=== PATIENT | female | born 1965 | race Caucasian/White ===

== ENCOUNTER 2018-10-02 08:00 | Inpatient (IN) | payer OTHER ==
[2018-10-12 15:53] VITALS: BMI 36.6
[2018-11-06] MEDS ORDERED: LIDOCAINE 1%-EPI 1:100,000 30 ML MDV IJ ONE (07:44)
[2018-11-06] MEDS ORDERED: BUPIVACAINE HCL/PF 0.5% (5MG/ML) 10 ML VIAL ONE (07:44)
[2018-11-06] MEDS ORDERED: ceFAZolin SODIUM 1 GM VIAL ONE ×2 (07:44→09:01)
[2018-11-06] MEDS ORDERED: GENTAMICIN SO4 80 MG/2 ML VIAL ONE (07:44)
[2018-11-06] MEDS ORDERED: THROMBIN (BOVINE) 20,000 UNIT VIAL TP ONE (07:44)
--- NOTE | 2018-11-06 07:46 | HP ---
History & Physical Update - History History: No Change - Physical Physical: No Change - Assessment Assessment: No Change - Plan Plan: No Change (H&P is located in patient's paper chart and will be scanned into her E-Chart BE[facility]. Completed on 09/27/[address] Lucy Terry. NO new complaints or medications.)
[2018-11-06] MEDS ORDERED: VANCOMYCIN 1,000 MG VIAL (RESTRICTED TO ID ONLY) ONE ×2 (07:48→09:03)
[2018-11-06] MEDS ORDERED: morphine SULFATE/Preservative Free 0.5 MG/ML (1cc Syringe) ONE (08:03)
[2018-11-06] MEDS ORDERED: PROPOFOL 20 ML ONE ×3 (08:06→11:13)
[2018-11-06] MEDS ORDERED: ROCURONIUM BROMIDE 50 MG/5 ML VIAL ONE (08:06)
[2018-11-06] MEDS ORDERED: MIDAZOLAM HCL 2 MG/2 ML SINGLE DOSE VIAL ONE (08:07)
[2018-11-06] MEDS ORDERED: LIDOCAINE HCL/PF 2% SDV 5ML VIAL ONE (08:08)
[2018-11-06] MEDS ORDERED: BUPIVACAINE HCL/PF 0.25% (2.5MG/ML) 10 ML VIAL ONE (08:22)
[2018-11-06] MEDS ORDERED: BUPIVACAINE LIPOSOME/PF (EXPAREL) 266 MG/20 ML VIAL ONE (08:22)
[2018-11-06] MEDS ORDERED: DEXAMETHASONE SOD PHOSPHATE 4 MG/1 ML VIAL ONE (08:46)
[2018-11-06] MEDS ORDERED: ONDANSETRON 4 MG/2 ML VIAL ONE (08:46)
[2018-11-06] MEDS ORDERED: SODIUM CHLORIDE 0.9% P/F 10 ML VIAL IJ ONE ×2 (09:01→09:03)
[2018-11-06] MEDS ORDERED: ceFAZolin SODIUM 1 GM VIAL IVPB ONE (09:02)
[2018-11-06] MEDS ORDERED: VANCOMYCIN 1,000 MG VIAL (RESTRICTED TO ID ONLY) IVPB ONE (09:04)
[2018-11-06] MEDS ORDERED: LIDOCAINE 1%/EPI 1:100000 (50 ML MULTI DOSE VIAL) NR ONE (09:05)
[2018-11-06] MEDS ORDERED: THROMBIN (BOVINE) 5,000 UNIT VIAL TP ONE ×3 (09:14→10:00)
[2018-11-06] MEDS ORDERED: GELATIN, ABSORBABLE 12-7MM EACH SPONGE TP ONE ×2 (09:14)
[2018-11-06] MEDS ORDERED: ePHEDrine SULFATE 50 MG/1 ML AMPULE ONE ×2 (09:22→09:29)
[2018-11-06] MEDS ORDERED: GENTAMICIN SO4 80 MG/2 ML VIAL IVPB ONE ×2 (10:56)
[2018-11-06] MEDS ORDERED: BUPIVACAINE LIPOSOME/PF (EXPAREL) 266 MG/20 ML VIAL NR ONE ×3 (10:56→11:08)
[2018-11-06] MEDS ORDERED: BUPIVACAINE HCL/PF 0.25% (2.5MG/ML) 10 ML VIAL IJ ONE ×3 (10:56→11:08)
[2018-11-06] MEDS ORDERED: BACITRACIN 50,000 UNITS VIAL TP ONE ×3 (10:56)
[2018-11-06] MEDS ORDERED: GLYCOPYRROLATE 0.2 MG/1 ML VIAL ONE (10:56)
[2018-11-06] MEDS ORDERED: HYDROGEN PEROXIDE 473 ML PO ONE ×2 (10:56)
[2018-11-06] MEDS ORDERED: NEOSTIGMINE METHYLSULFATE 0.5 MG/1 ML - 10 ML MDV ONE ×3 (10:56)
[2018-11-06] MEDS ORDERED: METOPROLOL TARTRATE 5 MG/5 ML VIAL ONE (11:49)
[2018-11-06] MEDS ORDERED: PROMETHAZINE HCL 25 MG/1 ML VIAL IVPB PRN (11:57)
[2018-11-06] MEDS ORDERED: ONDANSETRON 4 MG/2 ML VIAL IVPUSH PRN (11:57)
[2018-11-06] MEDS ORDERED: DEXAMETHASONE SOD PHOSPHATE 4 MG/1 ML VIAL IVPUSH PRN (11:57)
[2018-11-06] MEDS ORDERED: LACTATED RINGERS SOLUTION 1,000 ML IV SCH (12:00)
--- NOTE | 2018-11-06 12:08 | OP ---
Operative Note - Note: Operative Date: 11/06/18 Pre-Operative Diagnosis: Chronic LBP with LE radiculopathy. HNP L4/5 Operation: L4/5 PLIF Post-Operative Diagnosis: Same as Pre-op Surgeon: Milton Holder Coach Operator: Chuck Galdamez Anesthesiologist/MAINTAINER OPERATOR: Giovanni Del Rosario Anesthesia: General Specimens Removed: L4/5 disc Estimated Blood Loss (mls): 150 Drains, Volume Out (mls): 1,400 ([place]/clear) Fluid Volume Replaced (mls): 2,200 Operative Report Dictated: Yes
[2018-11-06] MEDS ORDERED: oxyCODONE HCL 5 MG TABLET PO PRN (12:10)
[2018-11-06] MEDS: HYDROmorphone *PCA* 10MG/50ML DISP.SYRIN PCA SCH (13:00)
[2018-11-06] MEDS: LACTATED RINGERS SOLUTION 1,000 ML/1,000 ML INFUS.BAG IV SCH (16:02)
[2018-11-06] MEDS: HEPARIN NA (PORCINE) 5,000 UNITS/ML 1ML VIAL SQ SCH ×2 (16:54→21:21)
[2018-11-06] MEDS: DOCUSATE SODIUM 100 MG CAPSULE (FP) PO SCH ×2 (16:54→21:20)
[2018-11-06] MEDS: metFORMIN HCL 500 MG TABLET (FP) PO SCH ×2 (17:29→18:14)
[2018-11-06] MEDS: CEFAZOLIN 1 GM/D5W 1 GM/50 ML BAG IVPB SCH (17:29)
[2018-11-06] MEDS ORDERED: FLU VACCINE QUAD 60 MCG/0.5 ML (MDV 18-19) IM ONE (19:15)
[2018-11-07] MEDS: CEFAZOLIN 1 GM/D5W 1 GM/50 ML BAG IVPB SCH ×3 (02:11→17:09)
[2018-11-07] MEDS: diphenhydrAMINE HCL 25 MG CAPSULE (FP) PO PRN ×3 (02:17→15:55)
[2018-11-07] MEDS: DOCUSATE SODIUM 100 MG CAPSULE (FP) PO SCH ×3 (06:03→21:19)
[2018-11-07] MEDS: HEPARIN NA (PORCINE) 5,000 UNITS/ML 1ML VIAL SQ SCH ×3 (06:03→21:19)
[2018-11-07] MEDS: metFORMIN HCL 500 MG TABLET (FP) PO SCH ×2 (06:06→16:03)
[2018-11-07] MEDS: HYDROmorphone *PCA* 10MG/50ML DISP.SYRIN PCA SCH ×2 (07:43→13:28)
[2018-11-07 07:48] LABS: HEMATOCRIT 32.6 % (32.4-45.2); HEMOGLOBIN 11.2 GM/dL (10.7-15.3); MCH 29.7 pg (25.7-33.7); MCHC 34.3 g/dl (32.0-36.0); MEAN CELL VOLUME 86.4 fl (80-96); MEAN PLT VOLUME 8.7 fl (7.5-11.1); PLATELET COUNT 295 K/MM3 (134-434); RBC 3.78 M/mm3 (3.60-5.2); RDW 14.9 % (11.6-15.6); WHITE BLOOD COUNT 17.6 K/mm3 (4.0-10.0)
--- NOTE | 2018-11-07 07:48 | PN ---
Progress Note (short form) - Note Progress Note: 53yo F s/p L4/5 fusion POD 1, pt seen and examined at bedside. Pt states that she is feeling well, complains of mild lumbar pain. Pt denies fever, chills, n/ v. Pt denies any numbness or weakness in her legs. Last Vital Signs Temp Pulse Resp BP Pulse Ox 98.5 F 84 20 100/56 L 96 11/07/18 06:52 11/07/18 06:52 11/07/18 06:52 11/07/18 06:52 11/06/18 21:00 CBC, BMP 11/07/18 06:45 11/07/18 06:45 PE Gen: A&O x3 Resp: breathing comfortably Back: incision is clean with no erythema or discharge, drain in place with serosanguinous drainage Output: 165ml LE: no weakness or numbness, no edema Problem List - Problems (1) S/P lumbar fusion Assessment/Plan: Plan -work on transitioning from [employer] to or pain meds -OOB/ambulate -dvt ppx -regular diet Code(s): Z98.1 - ARTHRODESIS STATUS
[2018-11-07 08:06] LABS: ANION GAP 8 MMOL/L (8-16); BLOOD UREA NITROGEN 10 mg/dL (7-18); CALCIUM 8.4 mg/dL (8.5-10.1); CHLORIDE 101 mmol/L (98-107); CO2 29 mmol/L (21-32); CREATININE 0.8 mg/dL (0.55-1.3); GLUCOSE,RANDOM 107 mg/dL (74-106); SODIUM 138 mmol/L (136-145)
[2018-11-07] MEDS: FERROUS SO4 325 MG TABLET (FP) PO SCH (09:35)
[2018-11-07] MEDS: FOLIC ACID 1 MG TABLET (FP) PO SCH (09:35)
[2018-11-07] MEDS: ENALAPRIL MALEATE 10 MG TABLET (FP) PO SCH (09:36)
[2018-11-07] MEDS: LACTATED RINGERS SOLUTION 1,000 ML/1,000 ML INFUS.BAG IV SCH ×2 (09:37→13:21)
[2018-11-07] MEDS ORDERED: HYDROCHLOROTHIAZIDE 25 MG TABLET (FP) PO SCH (10:00)
--- NOTE | 2018-11-07 12:21 | PN ---
Progress Note (short form) - Note Progress Note: s/p L4/5 PLIF obesity HTN NIDDM CBC, BMP 11/07/18 06:45 11/07/18 06:45 Vital Signs Period Temp Pulse Resp BP Sys/Carias Pulse Ox Last 24 Hr 97.4 F-98.5 F 66-96 14-20 14-136/50-67 94-99 S1S2 RRR lungs cta abd soft NT +bp no edema moves legs well, no sensory deficit postop care as per neurosurgical team hold hctz-bp runs low
[2018-11-07] MEDS: oxyCODONE HCL 5 MG TABLET PO PRN ×2 (17:11→21:19)
[2018-11-08] MEDS: CEFAZOLIN 1 GM/D5W 1 GM/50 ML BAG IVPB SCH ×2 (01:01→09:48)
[2018-11-08] MEDS: oxyCODONE HCL 5 MG TABLET PO PRN ×3 (02:20→16:20)
[2018-11-08] MEDS: DOCUSATE SODIUM 100 MG CAPSULE (FP) PO SCH ×2 (06:09→13:54)
[2018-11-08] MEDS: metFORMIN HCL 500 MG TABLET (FP) PO SCH (06:09)
[2018-11-08] MEDS: HEPARIN NA (PORCINE) 5,000 UNITS/ML 1ML VIAL SQ SCH ×2 (06:09→13:54)
--- NOTE | 2018-11-08 08:12 | PN ---
Progress Note (short form) - Note Progress Note: Progress Note: 53yo F s/p L4/5 fusion POD 2, pt seen and examined at bedside. Pt states that she is feeling well, complains of mild lumbar pain. Pt denies fever, chills, n/ v. Pt denies any numbness or weakness in her legs. Pain well controlled with PO pain meds. Last Vital Signs Temp Pulse Resp BP Pulse Ox 99.5 F 80 20 92/51 L 96 11/08/18 06:00 11/08/18 06:00 11/08/18 06:00 11/08/18 06:00 11/07/18 22:23 CBC, BMP 11/07/18 06:45 11/07/18 06:45 PE Gen: A&O x3 Resp: breathing comfortably Back: incision is clean with no erythema or discharge, drain in place with serosanguinous drainage Output: 65ml LE: no weakness or numbness, no edema Problem List - Problems (1) S/P lumbar fusion Assessment/Plan: Plan -will pull lumbar drain this AM -if pt does well with PT today is cleared for discharge from neurosurgery standpoint, pt should follow up with Dr. Holder as outpatient in 2 weeks. Problem List - Problems (1) S/P lumbar fusion Code(s): Z98.1 - ARTHRODESIS STATUS
--- NOTE | 2018-11-08 09:40 | PN ---
Progress Note (short form) - Note Progress Note: Vital Signs Period Temp Pulse Resp BP Sys/Carias Pulse Ox Last 24 Hr 98.5 F-99.5 F 76-94 18-20 92-126/48-66 96 S1S2 RRR lungs cta abd soft NT +bp no edema moves legs well, no sensory deficit back incision dressed,clean s/p L4/5 PLIF obesity HTN NIDDM postop care as per neurosurgical team hold hctz-bp runs low
[2018-11-08] MEDS: FERROUS SO4 325 MG TABLET (FP) PO SCH (09:42)
[2018-11-08] MEDS: ENALAPRIL MALEATE 10 MG TABLET (FP) PO SCH (09:42)
[2018-11-08] MEDS: FOLIC ACID 1 MG TABLET (FP) PO SCH (09:42)
[2018-11-08 14:52] VITALS: BP 98/54; PULSE 77; TEMP 98.5
--- NOTE | 2018-11-09 15:21 | DS ---
Physical Exam: SUBJECTIVE: Patient seen and examined OBJECTIVE: Vital Signs Temperature 98.5 F 11/08/18 14:00 Pulse Rate 77 11/08/18 14:00 Respiratory Rate 18 11/08/18 14:00 Blood Pressure 98/54 L 11/08/18 14:00 O2 Sat by Pulse Oximetry (%) 96 11/08/18 09:00 PHYSICAL EXAM GENERAL: The patient is awake, alert, and fully oriented, in no acute distress. HEAD: Normal with no signs of trauma. EYES: PERRL, extraocular movements intact, sclera anicteric, conjunctiva clear. ENT: Ears normal, nares patent, oropharynx clear without exudates, moist mucous membranes. NECK: Trachea midline, full range of motion, supple. ABDOMEN: Soft, nontender, nondistended, normoactive bowel sounds, no guarding, no rebound, no hepatosplenomegaly, no masses. EXTREMITIES: 2+ pulses, warm, well-perfused, no edema. NEUROLOGICAL: Cranial nerves II through XII grossly intact. Normal speech, gait not observed. PSYCH: Normal mood, normal affect. SKIN: Warm, dry, normal turgor, no rashes or lesions noted. LABS CBC,CMP WBC 17.6 K/mm3 (4.0-10.0) H 11/07/18 06:45 RBC 3.78 M/mm3 (3.60-5.2) 11/07/18 06:45 Hgb 11.2 GM/dL (10.7-15.3) 11/07/18 06:45 Hct 32.6 % (32.4-45.2) 11/07/18 06:45 MCV 86.4 fl (80-96) 11/07/18 06:45 MCH 29.7 pg (25.7-33.7) 11/07/18 06:45 MCHC 34.3 g/dl (32.0-36.0) 11/07/18 06:45 RDW 14.9 % (11.6-15.6) 11/07/18 06:45 Plt Count 295 K/MM3 (134-434) 11/07/18 06:45 MPV 8.7 fl (7.5-11.1) 11/07/18 06:45 Sodium 138 mmol/L (136-145) 11/07/18 06:45 Potassium 4.0 mmol/L (3.5-5.1) 11/07/18 06:45 Chloride 101 mmol/L (98-107) 11/07/18 06:45 Carbon Dioxide 29 mmol/L (21-32) 11/07/18 06:45 Anion Gap 8 MMOL/L (8-16) 11/07/18 06:45 BUN 10 mg/dL (7-18) 11/07/18 06:45 Creatinine 0.8 mg/dL (0.55-1.3) 11/07/18 06:45 Creat Clearance w eGFR > 60 (>60) 11/07/18 06:45 POC Glucometer 126 UNITS (80-120) 11/08/18 11:58 Random Glucose 107 mg/dL (74-106) H 11/07/18 06:45 Calcium 8.4 mg/dL (8.5-10.1) L 11/07/18 06:45 Serum , Qual Negative 11/06/18 06:39 HOSPITAL COURSE: Date of Admission:11/06/18 Date of Discharge: 11/09/18 The patient was admitted to the Med-Surg Unit after an elective repair of their L4/5 spondylosis. Now, s/p L4/5 posterior fusion. The day of surgery, the patient ambulated the hallways with assistance. Narcotic and non-narcotic pain management control was achieved with an oral and IV approach. POD #1, the surgical drain was removed fully intact and without incident. An CT was obtained and confirmed hardware placement at C4/5, no fractures or dislocations. Stacy-operative IV ABX were administered. DVT prophylaxis was achieved with SCDs and early ambulation. The patient ambulated with Physical Therapy and no services were recommended upon discharge. Narcotic scripts and or muscle relaxants were checked with [facility] PIPE THREADING MACHINE OPERATOR prior to escibe. The discharge instructions and an oral pain management plan were reviewed with the patient. All questions answered. Above plan discussed with Dr. Holder and agreed. Minutes to complete discharge: 20 Visit type - Case Type Case Type: Scheduled - Emergency Emergency Visit: No - New patient This patient is new to me today: Yes Date on this admission: 11/09/18
--- NOTE | 2018-11-20 13:14 | SURG ---
[facility] [employer] Sales Executive Note Solutions Sales Executive: Chuck Galdamez PA-C Date of Service: 11/06/18 Diagnosis: L4/5 disc herniation, stenosis and facet arthropathy Procedure: Bilateral L4/5 laminectomy and discectomy L4/5 Transpedicular approach Fluroscopy Microdissection Interbody cage L4/5 (terminated) Interbody & posterior/lateral arhtrodesis L4/5 L4/5 Posterior Instrumentation (technically challenging) Local autograft Bilateral soft tissue advanement flaps (50cm2) I was present for the entirety of the operative procedure. For further detail, please refer to operative report. Visit type - Case Type Case Type: Scheduled - New patient This patient is new to me today: Yes Date on this admission: 11/20/18
== END 2018-11-08 17:16 | disposition home or self-care (01) | DRG 460 ==
LOC: JSAMEDAYSX 11-06 06:22 → J8W 11-06 15:45
PROVIDERS: ADMIT Neurological Surgery; ATTEND Neurological Surgery
PROC: 0SG00AJ Fusion of Lumbar Vertebral Joint with Interbody Fusion Device, Posterior Approach, Anterior Column, Open Approach (ICD-10-PCS; 2018-11-06)
PROC: 0JX70ZB Transfer Back Subcutaneous Tissue and Fascia with Skin and Subcutaneous Tissue, Open Approach (ICD-10-PCS; 2018-11-06)
PROC: B01BZZZ Fluoroscopy of Spinal Cord (ICD-10-PCS; 2018-11-06)
PROC: 0QB00ZZ Excision of Lumbar Vertebra, Open Approach (ICD-10-PCS; principal; 2018-11-06 08:00)
DX: M51.26 Other intervertebral disc displacement, lumbar region (principal); M48.061 Spinal stenosis, lumbar region without neurogenic claudication; I10 Essential (primary) hypertension; E11.9 Type 2 diabetes mellitus without complications; E66.9 Obesity, unspecified; Z68.36 Body mass index [BMI] 36.0-36.9, adult
CPT/HCPCS: 36415; 72131-TC; 76000-TC-FY; 80048; 82962; 84703; 85027; 86850; 86900; 86901; 94760; J1644